=== PATIENT | female | born 1980 | race Caucasian/White ===

== ENCOUNTER 2016-09-05 22:27 | Emergency (ER) | payer SELFPAY ==
[~2016-09-05] VITALS: Ht 162.6 cm; Wt 66.7 kg
[2016-09-06 00:53] VITALS: BP 146/88
[2016-09-06] MEDS ORDERED: BACITRACIN-POLYMYXIN B TOPICAL OINT UD TOP ONE (01:42)
[2016-09-06] MEDS ORDERED: TETANUS-DIPTH-ACEL PERTUSSIS 0.5ML SYRG IM ONE (01:45)
== END 2016-09-06 01:59 | disposition home or self-care (01) ==
LOC: ER 22:41
DX: S01.451A Open bite of right cheek and temporomandibular area, initial encounter (principal); Z87.440 Personal history of urinary (tract) infections; W54.0XXA Bitten by dog, initial encounter; Y93.89 Activity, other specified; Y92.89 Other specified places as the place of occurrence of the external cause; Y99.8 Other external cause status; Z88.8 Allergy status to other drugs, medicaments and biological substances
CPT/HCPCS: 12011; 90471; 90715

== ENCOUNTER 2017-06-15 10:27 | Emergency (ER) | payer MEDICAID ==
[~2017-06-15] VITALS: Ht 162.6 cm; Wt 99.8 kg
[2017-06-15 10:33] VITALS: BP 141/87
== END 2017-06-15 11:05 | disposition home or self-care (01) ==
LOC: ER 10:27
DX: G43.909 Migraine, unspecified, not intractable, without status migrainosus (principal); Z98.51 Tubal ligation status

== ENCOUNTER 2018-04-27 11:20 | Emergency (ER) | payer MEDICAID ==
[~2018-04-27] VITALS: Ht 162.6 cm; Wt 116.6 kg
[2018-04-27] MEDS ORDERED: NALBUPHINE HCL 10 MG/1ml INJECTION IM ONE (14:30)
[2018-04-27 15:12] VITALS: BP 133/88
== END 2018-04-27 15:26 | disposition home or self-care (01) ==
LOC: ER 11:23
DX: G43.909 Migraine, unspecified, not intractable, without status migrainosus (principal); Z87.440 Personal history of urinary (tract) infections; Z98.51 Tubal ligation status
CPT/HCPCS: 96372; 99283; J2300